=== PATIENT | male | born 1945 | race Hispanic/Latino ===

== ENCOUNTER 2017-04-20 10:57 | Day surgery (SDC) | payer MEDICARE ==
[~2017-04-20 10:57] MED LIST: IOPIDINE ONE; IOPIDINE OS ONE; MYDRIACYL ONE; MYDRIACYL OS ONE; NEOFRIN ONE; NEOFRIN OS ONE
[2017-04-20] MEDS ORDERED: MYDRIACYL OS ONE (11:49)
[2017-04-20] MEDS ORDERED: NEOFRIN OS ONE (11:49)
[2017-04-20] MEDS ORDERED: IOPIDINE OS ONE (11:49)
[2017-04-20 12:01] VITALS: BP 112/64
== END 2017-04-20 10:58 | disposition home or self-care (01) ==
LOC: OR 10:57
PROVIDERS: ATTEND Specialist
DX: H26.492 Other secondary cataract, left eye (principal)